=== PATIENT | male | born 1990 | race Caucasian/White ===

== ENCOUNTER 2016-11-27 21:34 | Emergency (ER) | payer SELFPAY ==
[~2016-11-27] VITALS: Ht 172.7 cm; Wt 68.8 kg
[~2016-11-27 21:34] MED LIST: AZIT500T5 PO; CLIN300C86 PO
--- OUTSIDE RECORDS SUMMARY | 2016-11-27 21:38 | XMS REPORT | Continuity of Care Document ---
Author Author [facility] Organization [facility] Address Unknown Phone Unavailable Support Name Relationship Address Phone BRAYDEN LEWIS DO Caregiver [address] [address] Unavailable ZARA PURI MD Caregiver [address] [place] [address] Unavailable NIR MACK (FRIEND) Next Of Kin Unknown [phone] Insurance Providers Guarantor Madhu Velez Address [address] [place] [address] Email DENIED/NO TO PT PORT Payer Self Pay Subscriber's Name AkhilMadhu Relationship 18 Self Advance Directives Directive Response Recorded Date/Time Advanced Directives Type None 05/23/16 10:58am Chief Complaint and Reason for Visit Chief Complaint Upper Extremity Injury Reason for Visit [id number] Problems Active Problems Medical Problem Onset Date Status Back pain Unknown Acute Brain tumor Unknown Cough Unknown Acute Esophageal foreign body Unknown Acute Finger laceration Unknown Acute Foreign body finger Unknown Acute Hand laceration Unknown Acute Laceration of finger, right, with tendon Unknown Acute Laceration of right index finger Unknown Acute Lacerations of multiple sites of left arm Unknown Acute Left against medical advice Unknown Acute Painful swallowing Unknown Acute Past Problems Medical Problem Onset Date Conjunctivitis Unknown Lacerations of multiple sites of left arm Unknown Medications Current Home Medications Medication Dose Units Route Directions Days Qty Instructions Start Date Azithromycin 500 Mg Tablet 500 Mg Oral Daily 5 Days Z-ELVIRA 05/23/16 Clindamycin Hcl 300 Mg Capsule 300 Mg Oral Every 6 Hours 10 Days STARTING 05/18/16 05/23/16 Past Home Medications Medication Directions Ordered Status Acetaminophen (Tylenol Extra Strength) 500 Mg Tablet, 2 Tab Oral Every 6 Hours as needed for Pain 12/13/15 Discontinued Ibuprofen 100 Mg/5 Ml Suspension, 5 Ml Oral Onetime 12/13/15 Discontinued Social History Social History Problem Response Recorded Date/Time Onset Date Status Chewing Tobacco Status No 05/23/2016 11:02am Not Applicable Not Applicable Hx Substance Use No 05/23/2016 11:02am Not Applicable Not Applicable Hx Alcohol Use Y every other weekend 05/23/2016 11:02am Not Applicable Not Applicable Has the pt used tobacco in the last 12 months Yes 10/18/2015 9:34am Not Applicable Not Applicable Tobacco Usage smoke 08/27/2015 3:06am Not Applicable Not Applicable Query Response Start Date Stop Date Smoking Status Current every day smoker Hospital Discharge Instructions No hospital discharge instructions. Plan of Care Discharge Date 05/23/16 2:08pm Disposition 01 DISCHARGED HOME, SELF-CARE Condition at Discharge Improved Instructions/Education Provided DI for Open Laceration Prescriptions See Medication Section Referrals BRAYDEN LEWIS DO Address: [address] [place] [address] [address] [place], [place] [phone] Additional Instructions/Education The clindamycin your are taking will cover your wounds on your hand. Follow treatment plan, lacerations will heal by secondary intention. Watch for signs/symptoms infection (see treatment plan). Keep wounds clean (wash daily with soap and water and apply clean dressing). You may take OTC ibuprofen or Tylenol for pain as needed. Follow with your PCP for reevaluation in one week. Care Plan and Goals Physician Care Plan Problem: Foreign body from finger, hand and finger lacerations Goal: Follow up with primary care provider Instructions: Take medications and follow care plan as discussed/written Functional Status No functional status results. Allergies, Adverse Reactions, Alerts Allergen Type Severity Reaction Status Last Updated Penicillin Allergy Unknown Active 05/23/16 parsley Allergy Unknown Active 05/23/16 Immunizations Query Response on File Recorded Date/Time Hx Influenza Vaccination No 10/17/15 12:16pm Hx Pneumococcal Vaccination No 10/17/15 12:16pm Hx Tetanus, Diptheria, Pertussis Y January, 08/27/15 3:06am Hx Influenza Vaccination No 10/17/15 12:16pm Hx Tetanus, Diptheria, Pertussis Y January, 08/27/15 3:06am DTaP Vaccine History REPORTS WITHIN THE PAST 6 MONTHS 05/23/16 11:02am Influenza Vaccine Hx NONE 05/23/16 11:02am Tetanus Diptheria Vaccine History UTD 05/23/16 11:02am Tdap Vaccine Hx "WITHIN THE LAST 6 MONTHS" 05/23/16 10:58am Vital Signs Acute Vital Signs Vital Response Date/Time Temperature (Fahrenheit) 98.9 deg F (96.8 - 99.1) 05/23/2016 2:08pm Temperature (Calculated Celsius) 37.19600 degrees C (36.0 - 37.3) 05/23/2016 2:08pm Pulse Rate (adult) 87 bpm (60 - 100) 05/23/2016 2:08pm Respiratory Rate 16 breaths/min (10 - 20) 05/23/2016 2:08pm O2 Sat by Pulse Oximetry 99 % (90 - 100) 05/23/2016 2:08pm Blood Pressure 137/85 mm Hg 05/23/2016 2:08pm Height (Feet) 5 feet 05/23/2016 10:58am Height (Inches) 8.00 inches 05/23/2016 10:58am Weight (Kilograms) 63.900 kg 05/23/2016 10:58am Body Mass Index (BMI) 21.0 05/23/2016 10:58am Results No known relevant diagnostic tests, laboratory data and/or discharge summary. Procedures No known history of procedures. Encounters Encounter Location Arrival/Admit Date Discharge/Depart Date Attending Provider Departed Emergency Room [facility] 05/23/16 10:44am 05/23/16 2: 08pm ZARA PURI MD Departed Emergency Room [facility] 04/27/16 7:59pm 04/27/16 9: 09pm DECEMBERLOREE DO Recent Diagnosis
--- OUTSIDE RECORDS SUMMARY | 2016-11-27 21:38 | XMS REPORT | Continuity of Care Document ---
Author Author [facility] Organization [facility] Address Unknown Phone Unavailable Support Name Relationship Address Phone BRAYDEN LEWIS Caregiver [address] [place] [phone] KRISSY BOWMAN MD Caregiver [address] [phone] LEISA MAN Next Of Kin [address] [place], [place] [id number] Insurance Providers Payer Name Policy Number Subscriber Name Relationship Self Pay Madhu Velez 18 Self Advance Directives Directive Response Recorded Date/Time Advanced Directives Type None 09/09/14 9:30pm Problems Medical Problems Problem Onset Date Status Esophageal foreign body Unknown Active Esophageal foreign body Unknown Active Medications No known medications. Social History Social History Problem Response Recorded Date/Time Hx Alcohol Use No 09/09/2014 9:40pm Query Response Start Date Stop Date Smoking Status Current every day smoker Hospital Discharge Instructions No hospital discharge instructions. Plan of Care No plan of care. Functional Status Query Response Date Recorded Physical Hygiene Self September 09, 2014 9:40pm Disabilities None September 09, 2014 9:40pm Devices Used None September 09, 2014 9:40pm Dressing Self September 09, 2014 9:40pm Ambulation Self September 09, 2014 9:40pm Diet Self September 09, 2014 9:40pm Mental Status Alert Oriented September 09, 2014 10:10pm Disabilities None September 09, 2014 9:40pm Devices Used None September 09, 2014 9:40pm Physical Hygiene Self September 09, 2014 9:40pm Dressing Self September 09, 2014 9:40pm Ambulation Self September 09, 2014 9:40pm Diet Self September 09, 2014 9:40pm Allergies, Adverse Reactions, Alerts Allergen Type Severity Reaction Status Last Updated Penicillin Allergy Unknown Active 09/09/14 Immunizations Name Given Type Hx Influenza Vaccination No Historical Hx Influenza Vaccination No Historical Vital Signs Acute Vital Signs Vital Response Date/Time Temperature (Fahrenheit) 99.0 deg F (96.8 - 99.1) Temperature (Calculated Celsius) 37.74752 degrees C (36.0 - 37.3) Pulse Rate (adult) 69 bpm (60 - 100) Respiratory Rate 12 breaths/min (10 - 20) O2 Sat by Pulse Oximetry 99 % (90 - 100) Blood Pressure 129/69 mm Hg Height 5 ft 8 in Weight 145 lb Body Mass Index 22.0 kg/m^2 Results No known relevant diagnostic tests, laboratory data and/or discharge summary. Procedures No known history of procedures. Encounters Encounter Location Date/Time Departed Emergency Room [facility] 09/09/14 9:28pm Recent Diagnosis
--- OUTSIDE RECORDS SUMMARY | 2016-11-27 21:39 | XMS REPORT ---
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 Name Role Phone Kian Owens CP Unavailable Allergies, Adverse Reactions, Alerts Substance Reaction Event Type Penicillin Info Not Available Drug Allergy animal dander rash Non Drug Allergy Problems Problem Type Condition Code Onset Dates Condition Status Problem Blood in stool 578.1 Active Problem Dysphagia, unspecified 787.20 Active Problem Contact dermatitis and other eczema due to other specified agent 692.89 Active Assessment Encounter for dental examination and cleaning without abnormal findings Z01.20 Active Problem Elevated blood pressure reading without diagnosis of hypertension 796.2 Active Problem Asthma, unspecified, unspecified status 493.90 Active Medications Medication Code System Code Instructions Start Date End Date Status Dosage Triamcinolone Acetonide [facility] [address]-39 0.1 % Externally Twice a day December 19, 2012 1 application to affected area Albuterol Sulfate HFA [facility] [id number] 108 (90 Base) MCG/ACT Inhalation every 4 hrs prn 2 puffs as needed Keppra [facility] [address]-55 500 MG Orally every 12 hrs 1 tablet Procedures Procedure Coding System Code Date PANORAMIC FILM SEE ALSO CODE 68930 CPT-4 D0330 Jun 03, 2016 POLYATSANJUANA [place] DENTAL PAIN-MINOR PROC CPT-4 D9110 Jun 03, 2016 LTD ORAL EVALUATION - PROBLEM FOCUS CPT-4 D0140 Jun 03, 2016 Results No Known Results Summary Purpose [employer] Submission
[2016-11-27 22:16] VITALS: Ht 172.7 cm; Wt 68.8 kg
--- NOTE | 2016-11-27 23:22 | ERPDOC ---
Departure Disposition Decision Date: Nov 27, 2016 Disposition Decision Time: 23:24 (CARLOS KILPATRICK APRN) Disposition: 01 DISCHARGED HOME, SELF-CARE Impression Impression (CARLOS KILPATRICK APRN) Impression: Primary Impression: Dental infection Condition: Stable Seen By: Mid-level only (CARLOS KILPATRICK APRN) Referrals: BRAYDEN LEWIS DO (Family) Patient Instructions: Dental Caries (ED), ED Dental Follow-up Problems/Meds/Labs Reviewed?: Yes Medications reviewed and manag: Yes (CARLOS KILPATRICK APRN) Additional Instructions: 1. It is very important you take the Clindamycin as prescribed for entire course 2. Return to ER if you develop marked increased swelling to your face or neck 3. Ice your left cheek 15-20 minutes every 2 hours while awake Follow up care ordered?: Yes Mental Status: Alert, Oriented (CARLOS KILPATRICK APRN) Scripts Hydrocodone/Acetaminophen ([place] 5-325 Tablet) 5-325 Tablet 1 TAB PO Q6H for PAIN, #7 TAB 0 Refills Prov: CARLOS KILPATRICK APRN 11/27/16 HPI General Chief Complaint: Toothache Stated Complaint: TOOTH PAIN,FEVER Time Seen by Provider: 23:13 Source: patient Exam Limitations: no limitations (CARLOS KILPATRICK APRN) Time Seen by Provider: 23:13 (LOREE VARGAS DO) HPI Dental Initial Comments Martin is a 25-year-old male who presents to the [facility] emergency room with chief complaint of left lower or infection. States has decayed tooth that has been present for "quite some time." However, over the last week has developed increasing pain with some redness to the gumline. Was prescribed clindamycin for the infection which she reports as taking faithfully. Today called his primary care provider's office and was prescribed tramadol. Tramadol is not helping. Patient is not taking any additional Tylenol or ibuprofen [id number]. He called his primary care provider's machine operations supervisor system this evening and was advised to go to the emergency room for evaluation. Patient denies any noticeable fevers or difficulty swallowing. Onset: Gradual Duration: 1 week Pain Scale: Now: 8/10 Location: L lower Problem: chipped tooth, hoarseness Associated Symptoms: fractured tooth, gum swelling, DENIES: dental trauma, drooling, facial swelling, fever, trouble swallowing, vomiting (CARLOS KILPATRICK APRN ) Allergies: Coded Allergies: Penicillins (Verified Allergy, Unknown, 11/27/16) parsley (Verified Allergy, Unknown, 11/27/16) Past History Patient Surgical History brain tumor biopsy (CARLOS KILPATRICK APRN) Past Medical History ENMT: dental problems Respiratory: asthma GI: GERD Neurological: seizures (CARLOS KILPATRICK APRN) Surgical History General: EGD (CARLOS KILPATRICK APRN) Family History Family PMH: FOUND: other (CARLOS KILPATRICK APRN) Vaccines Hx Influenza Vaccination: No Hx Pneumococcal Vaccination: No Hx Tetanus, Diptheria, Pertuss: Yes (January,) (CARLOS KILPATRICK APRN) Social History Smoking Status: Current every day smoker Alcohol Intake: occasionally Sexuality: female partner Household Members: significant other Current Occupational Status: employed 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 (CARLOS KILPATRICK APRN) Review of Systems Constitutional Constitutional: DENIES: fever (CARLOS KILPATRICK APRN) ENMT Mouth/Throat: caries, DENIES: change in swallowing, change in voice, drooling, hoarsness, painful swallowing, sore throat (CARLOS KILPATRICK APRN) GI Upper Abdomen: DENIES: vomiting (CARLOS KILPATRICK APRN) All other Systems All Other Systems: Reviewed and Negative (CARLOS KILPATRICK APRN) Exam General General Nourishment: well nourished, well developed, appears stated age, no acute distress Vital Signs: Temperature: 99.9, Source: Oral, Heart Rate: 87, Respiratory Rate : 18, BP: 157/92, Pulse Oximetry: 99 Height (Feet): 5 Height (Inches): 8.00 (CARLOS KILPATRICK APRN) [facility]rak Dental Face: NOT FOUND: asymmetry, bruising, erythema, numbness, swelling, tender Jaw: NOT FOUND: asymmetry Gums: moist, swelling (mild left lower) Teeth: fractures Pharynx: NOT FOUND: erythema, exudate, swelling Tonsils: NOT FOUND: erythema, exudate Neck: L anterior adenopathy Skin: NOT FOUND: rash (CARLOS KILPATRICK APRN) Neurologic RN Documented GCS Eye Opening: Verbal: Motor: Total: (CARLOS KILPATRICK APRN) Differential Diagnoses Considering: Gingivitis, Lost Filling (CARLOS KILPATRICK APRN) Progress Results/Orders Medications Current ED Medications Ketorolac Tromethamine (Toradol) 60 mg O ONCE IM Last administered on t 23:29; Start 11/27/16 at 23:30; Stop 11/27/16 at 23:31; Status DC (LOREE VARGAS DO) CARLOS KILPATRICK APRN Nov 27, 2016 23:22 LOREE VARGAS DO Nov 30, 2016 23:59
[2016-11-27] MEDS ORDERED: HYDR-4246 PO (23:26)
[2016-11-27] MEDS ORDERED: KETOROLAC 60mg/2ml INJECTION IM ONE (23:30)
[2016-11-27 23:32] VITALS: BP 148/86; PULSE 88; RESP 18; TEMP 99.9; O2SAT 99
--- OUTSIDE RECORDS SUMMARY | 2016-11-27 23:41 | XMS REPORT | Continuity of Care Document ---
Author Author [facility] Organization [facility] Address Unknown Phone Unavailable Support Name Relationship Address Phone BRAYDEN LEWIS Caregiver [address] [place] [phone] KRISSY BOWMAN MD Caregiver [address] [place] [phone] LEISA MAN Next Of Kin [address] [place], [place] [id number] Insurance Providers Payer Name Policy Number Subscriber [...] F (96.8 - 99.1) Temperature (Calculated Celsius) 37.16672 degrees C (36.0 - 37.3) Pulse Rate [...] Encounters Encounter Location Date/Time Departed Emergency Room [facility] 09/09/14 9:28pm Recent Diagnosis
== END 2016-11-27 23:32 | disposition home or self-care (01) ==
LOC: ED 21:34
DX: K04.7 Periapical abscess without sinus (principal)
CPT/HCPCS: 96372